=== PATIENT | female | born 1960 | race African-American/Black ===

== ENCOUNTER 2021-05-23 23:53 | Emergency (ER) | payer MEDICAID ==
[~2021-05-23] VITALS: Ht 175.3 cm; Wt 79.0 kg
[2021-05-24] MEDS ORDERED: ACETAMINOPHEN 325MG TABLET PO ONE (01:30)
[2021-05-24 03:05] VITALS: BP 148/84
== END 2021-05-24 03:24 | disposition home or self-care (01) ==
LOC: ER 23:53
DX: U07.1 COVID-19 (principal); I11.9 Hypertensive heart disease without heart failure; F14.10 Cocaine abuse, uncomplicated; Z90.710 Acquired absence of both cervix and uterus
CPT/HCPCS: 71045; 87426; 99284